=== PATIENT | male | born 1970 | race Caucasian/White ===

== ENCOUNTER 2017-07-15 19:33 | Emergency (ER) | payer OTHER ==
[2017-07-15 19:41] VITALS: BP 163/97; BMI 29.7
--- NOTE | 2017-07-15 20:17 | DR.GENAD ---
HPI - PCP Primary Care Physician: peter - HPI Comment HPI Comment: PATIENT CURRENTLY UNDERGOING NEURO WORKUP. EEG DONE YESTERDAY. BACK OF HEAD HURTING WORSE SINCE PROCEDURE. PROBE WAS PRESSING ON HIS SCALP. PATIENT HAVE DONE HEAD CT AND MRI ALSO. NO FEVER. SYMTOMS WORSE TODAY. - Complaint/Symptoms Chief Complaint Doctors Comments: OCCIPITAL HEADACHE WITH NAUSEA FOR SEVERAL HOURS. Chief Complaint:: pt states" rodriguez been having some pains in the back of my head he had a ct of the brain done last thrusday and a eeg done yesterday." - Nurses notes reviewed Nurses Notes Review: Yes - Source History Provided: Patient - Mode of Arrival Mode of Arrival: Ambulatory - Timing Onset of Chief Complaint: 07/15/17 Came on: Suddenly - Duration Duration: Constant Duration: Days - Severity Severity: Moderate PMH - PMH Past Medical History: Yes Past Medical History: Hypertension Past Surgical History: Yes Surgical History: Ortho Surgery Past Surgical History Comment: right arm and back - Family History History of Family Medical Conditions: Yes Family Medical History: Diabetes Mellitus, Cancer, [place], Coronary Artery Disease, Hypertension - Social History Type of Tobacco Use: Cigarettes Does any household member use tobacco: Yes Alcohol Use: None Do you use any recreational Drugs:: No Lives With: Family Lives Where: Home - infectious screening In the last 2 months have you had wt loss of >10#?: NO Have you had fever, night sweats or hemotysis?: No Have you traveled outside the country in the last 6 months?: No Isolation: Standard ROS - Review of Systems Constitutional: No Symptoms Reported Eyes: No Symptoms Reported. negative: Eye Pain, Discharge ENTM: No Symptoms Reported. negative: Ear Pain, Nose Discharge, Nose Congestion , Throat Pain Respiratoy: No Symptoms Reported. negative: Productive Cough, Non-Productive Cough, Short of Breath, Wheezing, Hemoptysis Cardiovascular: No Symptoms Reported Gastrointestinal/Abdominal: No Symptoms Reported Genitourinary: No Symptoms Reported. negative: Dysuria, Frequency, Hematuria Neurological: Headache Musculoskeletal: No Symptoms Reported Integumentary: No Symptoms Reported Hematologic/Lymphatic: No Symptoms Reported Endocrine: No Symptoms Reported All Other Systems: Reviewed and Negative PE - Vital Signs Vitals: Temperature 99.3 F Pulse Rate 77 Respiratory Rate 18 Blood Pressure 163/97 O2 Sat by Pulse Oximetry 98 - General Limitations: No Limitations General Appearance: Alert - Head Head Exam: Normal Inspection (SCALP TENDER.), Other - Eyes Eye exam: Normal Appearance - ENT ENT Exam: Normal External Ear Exam External Ear Exam: Normal External Inspection TM/Canal Exam: Bilateral Normal Nose Exam: Normal Nose Exam Mouth Exam: Normal Inspection Throat Exam: Normal Inspection - Neck Neck Exam: Trachea Midline - Chest Chest Inspection: Symmetric Chest Wall Rise - Respiratory Respiratory Exam: Normal Lung Sounds Bilat Respiratory Exam: Bilateral Clear to Auscultation - Cardiovascular Cardiovascular Exam: Regular Rate, Normal Rhythm, Normal Heart Sounds - Abdominal Exam Abdominal Exam: Normal Bowel Sounds, Soft. negative: Tenderness - Extremities Extremities Exam: Normal Inspection - Back Back Exam: Normal Inspection - Neurologic Neurological Exam: Alert, Oriented X3, CN II-XII Intact, Normal Gait, Reflexes Normal. negative: Motor Sensory Deficit - Psychiatric Psychiatric Exam: Anxious - Skin Skin Exam: Normal Color MDM - Additional Information Additional Information Obtained From: Family - Differential Diagnosis Differential Diagnosis: HEADACHE, MIGRAINE Course - Treatment Treatment: SEE ORDERS. DEMOROL AND ZOFRAN IM IN ED. PAIN IMPROVED. - Reevaluation 1st: Improved - Education/Counseling Education/Counseling: Patient, Family, Education Educated On: Treatment, Diagnosis, Needs for Follow Up - Diagnosis Discharge Problem: Migraine headache Qualifiers: Migraine type: other Status migrainosus presence: without status migrainosus Intractability: intractable Qualified Code(s): G43.819 - Other migraine, intractable, without status migrainosus - Discharge Plan Disposition: 01 HOME, SELF-CARE Condition: Stable - Follow ups/Referrals Follow ups/Referrals: AISHA COOPER [Primary Care Provider] - 3 days - Instructions Instructions: Migraine Headache, [id number] Additional Instructions: RETURN TO ED IF WORSE. SEE YOUR NEUROLOGIST IN AM.
[2017-07-15] MEDS ORDERED: ZOFRAN INJ 4 MG VIAL IM ONE (20:26)
[2017-07-15] MEDS ORDERED: DEMEROL INJ IM ONE (20:26)
[2017-07-15] MEDS ORDERED: DEMEROL INJ ONE (20:30)
[2017-07-15] MEDS ORDERED: ZOFRAN INJ 4 MG VIAL ONE (20:30)
== END 2017-07-15 21:42 | disposition home or self-care (01) ==
LOC: ER 19:53
DX: G43.819 Other migraine, intractable, without status migrainosus (principal)
CPT/HCPCS: 96372; 99282; J2175; J2405